=== PATIENT | female | born 1975 | race Caucasian/White ===

== ENCOUNTER 2021-12-10 05:18 | Day surgery (SDC) | payer MEDICAID ==
[2021-12-03 15:13] LABS: BASOPHILS # (AUTO) 0.1 X10'3 (0-0.2); BASOPHILS % (AUTO) 0.7 % (0-1); EOSINOPHILS # (AUTO) 0.2 X10'3 (0-0.9); EOSINOPHILS % (AUTO) 1.5 % (0-6); LYMPHOCYTES # (AUTO) 3.1 X10'3 (1.1-4.8); LYMPHOCYTES % (AUTO) 28.2 % (21-51); MEAN CORPUSCULAR HEMOGLOBIN 29.1 PG (27.0-31.0); MEAN CORPUSCULAR HGB CONC 33.1 g/dL (33.0-36.5); MEAN CORPUSCULAR VOLUME 88.1 FL (78-98); MEAN PLATELET VOLUME 8.6 FL (7.4-10.4); MONOCYTES # (AUTO) 0.7 X10'3 (0-0.9); MONOCYTES % (AUTO) 5.8 % (2-12); NEUTROPHILS # (AUTO) 7.1 X10'3 (1.8-7.7); NEUTROPHILS % (AUTO) 63.8 % (42-75); PRE OP HEMATOCRIT 42.7 % (35.0-45.0); PRE OP HEMOGLOBIN 14.1 g/dL (12.0-16.0); PRE OP PLATELET COUNT 220 X10'3 (140-440); RED BLOOD COUNT 4.84 X10'6 (4.20-5.60); RED CELL DISTRIBUTION WIDTH 13.3 % (11.5-14.5)
[2021-12-03 15:24] LABS: ALBUMIN/GLOBULIN RATIO 1.1 (1.1-1.5); ALKALINE PHOSPHATASE 98 IU/L (46-116); BLOOD UREA NITROGEN 18 MG/DL (7-18); CALCIUM 9.4 MG/DL (8.5-10.1); CHLORIDE 107 MMOL/L (99-107); CREATININE 0.82 MG/DL (0.40-0.90); PRE OP ALT 21 U/L (30-65); PRE OP ANION GAP 6 (8-16); PRE OP BILIRUB, TOTAL 0.1 MG/DL (0.0-1.0); PRE OP GLUCOSE 102 MG/DL (70-104); PRE OP SODIUM 141 MMOL/L (135-145); TOTAL CARBON DIOXIDE 27.9 MMOL/L (24-32); TOTAL PROTEIN 7.8 G/DL (6.4-8.2); eGFR 74 ML/MIN
[2021-12-03 15:34] LABS: PRE OP AST 15 U/L (10-37); PRE OP POTASSIUM 4.1 MMOL/L (3.4-5.1)
[~2021-12-10] VITALS: Ht 157.5 cm; Wt 112.7 kg
[~2021-12-10 05:18] MED LIST: ALBU8HFA PO; BUDE10.2 INH; CETI10TA14 PO; CHOL20002 PO; FOLI-91 PO; LOSA25TA41 PO; MELA10TA PO; PRAV20TA4 PO; VENL150C58 PO; glycopyrrolate 0.2mg/ml inj ONE; neostigmine methylsulfate 1 MG/ML 10ml vial ONE; ondansetron/PF 4mg/2ml inj ONE; propofol inj 0 ML IV ONE; rocuronium 10mg/ml inj IV ONE
[2021-12-10] MEDS ORDERED: ringers solution, lacted 1,000 ML IV SCH (05:30)
[2021-12-10] MEDS ORDERED: famotidine 20mg tablet PO ONE (05:30)
[2021-12-10 05:35] VITALS: BP 129/82
[2021-12-10] MEDS ORDERED: ipratropium/albuterol 3ml nebule IH PRN (06:25)
[2021-12-10] MEDS ORDERED: BUPIVAcaine/PF 2.5 mg/ml (0.25%) 30ml vial ONE ×2 (06:40→06:41)
[2021-12-10] MEDS ORDERED: ceFAZolin inj. 2,000 MG in dextrose 5%-water 100 ML IV ONE (06:55)
[2021-12-10] MEDS ORDERED: LIDOcaine 1% 30ml preserv. free vial ONE (07:00)
[2021-12-10] MEDS ORDERED: fentaNYL/PF 50MCG/1 ML 2ML syringe ONE (07:14)
[2021-12-10] MEDS ORDERED: MIDAZolam 1 MG/ML 5ML VIAL ONE (07:14)
[2021-12-10] MEDS ORDERED: ketorolac trometh. 30mg/ml inj. ONE (07:17)
[2021-12-10] MEDS ORDERED: 0.9 % SODIUM CHLORIDE 10 ML VIAL ONE (07:25)
[2021-12-10] MEDS ORDERED: propofol inj 20 ML IV ONE (07:54)
[2021-12-10 07:59] VITALS: BP 134/76
--- NOTE | 2021-12-10 07:59 | NUR ---
Received from OR via [facility], accompanied by Anesthesiologist dr acosta and report given by Anesthesiolgist. PT PRESENTS WITH PIV 20G LEFT HAND. DRESSING ON RIGHT ELBOW AND WRIST CDI. VSS. Addendum: 12/10/21 at 0808 by Renata Morrissey RN, RN Amended: Links added.
[2021-12-10 08:10] VITALS: BP 127/72
[2021-12-10 08:20] VITALS: BP 117/64
[2021-12-10 08:30] VITALS: BP 108/62
[2021-12-10 08:39] VITALS: BP 108/62
--- NOTE | 2021-12-10 08:39 | NUR ---
ALL DISCHARGE CRITERIA HAS BEEN MET. VSS, PAIN AT A TOLERABLE LEVEL, VOIDING AND ABLE TO SAFELY AMBULATE AND TRANSFER SELF. IV TAKEN OUT WITHOUT COMPLICATIONS. ALL DISCHARGE INSTRUCTIONS COVERED WITH PATIENT AND ALL QUESTIONS ANSWERED, COPY GIVEN TO PATIENT. PATIENT TAKEN OUT VIA WHEELCHAIR TO PERSONAL VEHICLE WHERE FAMILY/FRIEND DROVE PATIENT HOME. Addendum: 12/10/21 at 0843 by Renata Morrissey RN, RN Amended: Links added.
[2021-12-10] MEDS ORDERED: albuterol 2.5 MG/3 ML nebule NEB ONE (10:40)
== END 2021-12-10 08:39 | disposition home or self-care (01) ==
LOC: PAS 05:18
PROVIDERS: ATTEND Orthopaedic Surgery Hand Surgery
DX: G56.01 Carpal tunnel syndrome, right upper limb (principal); G56.21 Lesion of ulnar nerve, right upper limb; I10 Essential (primary) hypertension; E11.9 Type 2 diabetes mellitus without complications; Z79.899 Other long term (current) drug therapy; Z98.890 Other specified postprocedural states; Z90.710 Acquired absence of both cervix and uterus; Z90.49 Acquired absence of other specified parts of digestive tract; Z87.891 Personal history of nicotine dependence; Z79.4 Long term (current) use of insulin
CPT/HCPCS: 29848; 36415; 64718; 80053; 82948; 85025; 93005; 94640; 94664; 94760; J1885; J2250; J2704; J3010; J3490; J7030; J7120; Z7506; Z7512; A4215; A6449; A7000; J2405; J2710

== ENCOUNTER 2022-01-18 06:56 | Day surgery (SDC) | payer MEDICAID ==
[2022-01-11 15:42] LABS: BASOPHILS # (AUTO) 0.1 X10'3 (0-0.2); BASOPHILS % (AUTO) 0.8 % (0-1); EOSINOPHILS # (AUTO) 0.1 X10'3 (0-0.9); EOSINOPHILS % (AUTO) 1.2 % (0-6); LYMPHOCYTES # (AUTO) 2.9 X10'3 (1.1-4.8); LYMPHOCYTES % (AUTO) 26.7 % (21-51); MEAN CORPUSCULAR HEMOGLOBIN 29.2 PG (27.0-31.0); MEAN CORPUSCULAR HGB CONC 33.5 g/dL (33.0-36.5); MEAN PLATELET VOLUME 8.4 FL (7.4-10.4); MONOCYTES # (AUTO) 0.6 X10'3 (0-0.9); MONOCYTES % (AUTO) 5.5 % (2-12); NEUTROPHILS # (AUTO) 7.2 X10'3 (1.8-7.7); NEUTROPHILS % (AUTO) 65.8 % (42-75); PRE OP HEMATOCRIT 41.3 % (35.0-45.0); PRE OP HEMOGLOBIN 13.8 g/dL (12.0-16.0); PRE OP PLATELET COUNT 198 X10'3 (140-440); RED BLOOD COUNT 4.75 X10'6 (4.20-5.60); RED CELL DISTRIBUTION WIDTH 13.1 % (11.5-14.5)
[2022-01-11 15:56] LABS: ALBUMIN 3.9 G/DL (3.4-5.0); ALBUMIN/GLOBULIN RATIO 1.1 (1.1-1.5); ALKALINE PHOSPHATASE 95 IU/L (46-116); BLOOD UREA NITROGEN 17 MG/DL (7-18); BUN/CREATININE RATIO 19.8 (6.6-38.0); CALCIUM 9.6 MG/DL (8.5-10.1); CHLORIDE 101 MMOL/L (99-107); CREATININE 0.86 MG/DL (0.40-0.90); PRE OP ALT 24 U/L (30-65); PRE OP ANION GAP 8 (8-16); PRE OP AST 20 U/L (10-37); PRE OP BILIRUB, TOTAL 0.2 MG/DL (0.0-1.0); PRE OP GLUCOSE 104 MG/DL (70-104); PRE OP POTASSIUM 4.1 MMOL/L (3.4-5.1); PRE OP SODIUM 138 MMOL/L (135-145); TOTAL PROTEIN 7.5 G/DL (6.4-8.2); eGFR 70 ML/MIN
[~2022-01-18] VITALS: Ht 160 cm; Wt 116.5 kg
[2022-01-18] VITALS (8 sets, daily range): BP systolic 110–137; BP diastolic 64–94
[~2022-01-18 06:56] MED LIST changes: +ACET-1008 PO; +CELE100C98 PO; +IMMUNE BOOSTER; +albuterol 2.5 MG/3 ML nebule NEB ONE; +ceFAZolin inj. 2,000 MG in dextrose 5%-water 100 ML IV ONE; +famotidine 20mg tablet PO ONE; -glycopyrrolate 0.2mg/ml inj ONE; -neostigmine methylsulfate 1 MG/ML 10ml vial ONE; -ondansetron/PF 4mg/2ml inj ONE; -propofol inj 0 ML IV ONE; +ringers solution, lacted 1,000 ML IV SCH; -rocuronium 10mg/ml inj IV ONE
[2022-01-18] MEDS ORDERED: LIDOcaine 0.5% (5mg/ml) 50ml vial ONE (07:21)
[2022-01-18] MEDS ORDERED: BUPIVAcaine/PF 2.5 mg/ml (0.25%) 30ml vial ONE (07:21)
[2022-01-18] MEDS ORDERED: LIDOcaine 1% 30ml preserv. free vial ONE (07:34)
[2022-01-18] MEDS ORDERED: MIDAZolam 1 MG/ML 5ML VIAL ONE (09:37)
[2022-01-18] MEDS ORDERED: fentaNYL/PF 50MCG/1 ML 2ML syringe ONE (09:37)
[2022-01-18] MEDS ORDERED: propofol inj 20 ML IV ONE (10:44)
[2022-01-18] MEDS ORDERED: ketorolac trometh. 30mg/ml inj. ONE (10:44)
--- NOTE | 2022-01-18 10:55 | NUR ---
Received from OR via [facility], accompanied by Anesthesiologist, DR. CH and report given. PATIENT WAKING UP, NO S/S OF PAIN, V/S WNL, 20G TO RUE, LEFT WRIST AND ELBOW DRESSING CDI-ICE AND ELEVATED. FINGERS PINK WARM TO LEFT HAND.
[2022-01-18] MEDS ORDERED: HYDROcodone/acetaminophen 5mg/325mg tablet PO ONE (11:15)
[2022-01-18] MEDS ORDERED: acetaminophen 1,000mg/100ml IV 100 ML IV ONE (11:20)
[2022-01-18] MEDS ORDERED: meperidine/PF 25mg/ml syringe IV ONE (11:20)
--- NOTE | 2022-01-18 11:20 | NUR ---
PT PAINFUL 09/09-NO PAIN MEDS ORDERED BY ANESTHESIA, OBTAINED ORDER AND WAITING FOR PHARMACY APPROVAL, PT TOLERATING LIQUIDS, VSS
--- NOTE | 2022-01-18 11:38 | NUR ---
GIVEN IV DEMEROL, IV TYLENOL PAIN BETTER 5/10, ICE IN PLACE, WARM AIR FOR COMFORT, VSS, FINGERS PINK/WARM, 1 NORCO GIVEN FOR PAIN FOR TRIP HOME.
--- NOTE | 2022-01-18 12:15 | NUR ---
PT DOING WELL-DRESSED AND WAITING FOR , VSS, PAIN TOLERABLE 3/10, FINGERS PINK AND WARM ON LEFT HAND, DRSG-CDI, PIV-D/CD CANULA INTACT, D/C INSTRUCTIONS GIVEN TO PT-ALL QUESTIONS ANSWERED, TAKEN VIA W/C WITH ALL BELONGINGS TO VEHICLE FOR TRANSPORT HOME.
== END 2022-01-18 12:15 | disposition home or self-care (01) ==
LOC: PAS 06:56
PROVIDERS: ATTEND Orthopaedic Surgery Hand Surgery
DX: G56.02 Carpal tunnel syndrome, left upper limb (principal); G56.22 Lesion of ulnar nerve, left upper limb; F41.8 Other specified anxiety disorders; Z79.899 Other long term (current) drug therapy; Z98.890 Other specified postprocedural states; Z90.710 Acquired absence of both cervix and uterus; Z87.891 Personal history of nicotine dependence; Z91.09 Other allergy status, other than to drugs and biological substances; Z90.49 Acquired absence of other specified parts of digestive tract; Z85.43 Personal history of malignant neoplasm of ovary
CPT/HCPCS: 29848; 36415; 64718; 80053; 82948; 85025; A6258; J0131; J0690; J1885; J2175; J2250; J2704; J3010; J3490; J7030; J7060; J7120; Z7506; Z7512; A4215; A7000

== ENCOUNTER 2023-07-06 08:13 | Emergency (ER) | payer MEDICAID ==
[~2023-07-06] VITALS: Ht 157.5 cm; Wt 120.3 kg
[~2023-07-06 08:13] MED LIST changes: +CELE-148 PO; -CELE100C98 PO; -MELA10TA PO; +MELATONIN10 MG PO; -albuterol 2.5 MG/3 ML nebule NEB ONE; -ceFAZolin inj. 2,000 MG in dextrose 5%-water 100 ML IV ONE; -famotidine 20mg tablet PO ONE; -ringers solution, lacted 1,000 ML IV SCH
[2023-07-06 08:19] VITALS: TEMP 97.2
[2023-07-06] MEDS: normal saline 1000ML IV soln IVB ONE (09:19)
[2023-07-06] MEDS: morphine 4 MG/ML inj SYRINge IV PRN (09:19)
[2023-07-06] MEDS: ondansetron/PF 4mg/2ml inj IV ONE (09:19)
[2023-07-06 09:34] LABS: ALANINE AMINOTRANSFERASE 27 U/L (12-78)
[2023-07-06 09:35] LABS: ALBUMIN 4.2 G/DL (3.4-5.0); ALBUMIN/GLOBULIN RATIO 1.1 (1.1-1.5); ALKALINE PHOSPHATASE 89 IU/L (46-116); ANION GAP 10 (8-16); ASPARTATE AMINO TRANSFERASE 13 U/L (10-37); BILIRUBIN,TOTAL 0.4 MG/DL (0.1-1.0); BLOOD UREA NITROGEN 10 MG/DL (7-18); BUN/CREATININE RATIO 12.7 (10.0-20.0); CALCIUM 9.3 MG/DL (8.5-10.1); CHLORIDE 104 MMOL/L (99-107); CREATININE 0.79 MG/DL (0.40-0.90); GLUCOSE 150 MG/DL (70-104); LIPASE 29 U/L (16-77); POTASSIUM 4.1 MMOL/L (3.5-5.1); SODIUM 139 MMOL/L (135-145); TOTAL CARBON DIOXIDE 24.9 MMOL/L (24-32); eCRCL 68 ML/MIN; eGFR 77 ML/MIN
[2023-07-06 09:36] LABS: BASOPHILS # (AUTO) 0.1 X10'3 (0-0.2); BASOPHILS % (AUTO) 0.9 % (0-1); EOSINOPHILS # (AUTO) 0.1 X10'3 (0-0.9); EOSINOPHILS % (AUTO) 1.4 % (0-6); HEMATOCRIT 44.7 % (35.0-45.0); HEMOGLOBIN 15.2 g/dl (12.0-16.0); LYMPHOCYTES # (AUTO) 3.1 X10'3 (1.1-4.8); LYMPHOCYTES % (AUTO) 32.9 % (21-51); MEAN CORPUSCULAR HEMOGLOBIN 29.8 PG (27.0-31.0); MEAN CORPUSCULAR VOLUME 87.7 FL (78-98); MEAN PLATELET VOLUME 8.4 FL (7.4-10.4); MONOCYTES # (AUTO) 0.4 X10'3 (0-0.9); MONOCYTES % (AUTO) 4.4 % (2-12); NEUTROPHILS # (AUTO) 5.7 X10'3 (1.8-7.7); NEUTROPHILS % (AUTO) 60.4 % (42-75); PLATELET COUNT 237 X10'3 (140-440); RED BLOOD COUNT 5.09 X10'6 (4.20-5.60); RED CELL DISTRIBUTION WIDTH 12.4 % (11.5-14.5); WHITE BLOOD COUNT 9.4 X10'3 (4.5-11.0)
[2023-07-06 12:40] LABS: BILIRUBIN,URINE NEGATIVE (Neg); CLARITY,URINE SLIGHTLY CLOUDY (Clear); COLOR,URINE YELLOW (Yellow); GLUCOSE, URINE NEGATIVE (Neg); KETONES,URINE NEGATIVE (Neg); LEUKOCYTE ESTERASE ,URINE NEGATIVE (Neg); NITRITES, URINE NEGATIVE (Neg); OCCULT BLOOD,URINE NEGATIVE (Neg); PROTEIN,URINE NEGATIVE (Neg); UROBILINOGEN,URINE 0.2 E.U/dL (0.2-1.0)
[2023-07-06 12:44] LABS: UA COLLECTION TYPE CLN CATCH MIDSTREAM
[2023-07-06 12:49] LABS: MUCUS STRANDS MANY /LPF (Neg); SQUAMOUS EPITHELIAL CELL,UR MANY /LPF (FEW)
[2023-07-06 12:50] LABS: BACTERIA,URINE FEW /HPF (Neg); CAL OXALATE CRYSTALS 1+ /HPF (NEGATIVE); RBC,URINE 0-2 /HPF (0-2); WBC,URINE 0-4 /HPF (0-4)
[2023-07-06 14:39] VITALS: BP 120/65; PULSE 72; RESP 16; O2SAT 95
== END 2023-07-06 14:44 | disposition home or self-care (01) ==
LOC: ER 08:14
DX: R10.33 Periumbilical pain (principal); Z91.09 Other allergy status, other than to drugs and biological substances; Z79.899 Other long term (current) drug therapy; Z79.2 Long term (current) use of antibiotics
CPT/HCPCS: 36415; 74176; 80053; 81001; 83690; 85025; 96361; 96374; 96375; 96376; 99285; J2270; J2405; J7030

== ENCOUNTER 2023-08-18 02:50 | Emergency (ER) | payer MEDICAID ==
[~2023-08-18] VITALS: Ht 157.5 cm; Wt 119.1 kg
[2023-08-18] MEDS: acetaminophen 325mg tablet PO ONE (05:56)
[2023-08-18 05:58] VITALS: TEMP 97.8
[2023-08-18] MEDS ORDERED: AMOX-580 PO (06:01)
[2023-08-18] MEDS: morphine sulfate IR 15MG tablet PO STA (06:17)
[2023-08-18] MEDS: amox tr/potassium clavulanate 875/125mg TAB PO ONE (06:17)
[2023-08-18 07:02] VITALS: BP 190/95; PULSE 77; RESP 18; O2SAT 96
== END 2023-08-18 07:22 | disposition home or self-care (01) ==
LOC: ER 02:50
DX: K08.89 Other specified disorders of teeth and supporting structures (principal); Z91.09 Other allergy status, other than to drugs and biological substances; Z79.2 Long term (current) use of antibiotics; Z79.899 Other long term (current) drug therapy; Z79.1 Long term (current) use of non-steroidal anti-inflammatories (NSAID)
CPT/HCPCS: 99284

== ENCOUNTER 2024-12-17 20:49 | Inpatient (IN) | payer MEDICAID ==
[~2024-12-17] VITALS: Ht 162.6 cm; Wt 110.9 kg
[~2024-12-17 20:49] MED LIST changes: +PRAV20TA17 PO; -PRAV20TA4 PO
[2024-12-17] MEDS: normal saline 1000ML IV soln IVB ONE ×2 (21:09→21:54)
--- NOTE | 2024-12-17 21:12 | Physician Documentation ---
History of Present Illness General Chief Complaint: Syncope Stated Complaint: LOW BP Time Seen by MD: 20:58 Mode of Arrival: POV History of Present Illness Initial Comments Patient is a 49-year-old female with a complaint of weakness and diaphoresis over the last 2-3 days. Patient states she recently and multiple medications adjusted to include blood pressure medications and a medication for anxiety. She states over the last two days she has had progressively worsening weakness she has been sweating family states she has been slightly confused. Patient had a syncopal episode while in triage. Patient denies any fevers she denies any chest pain she states she has some slight shortness of breath. Patient is a diabetic. Medication Reconciliation Allergies: Coded Allergies: adhesive tape (Verified Allergy, Unknown, "rash on skin", 12/17/24) Scheduled Amlodipine Besylate (Amlodipine Besylate), 2 TAB PO DAILY Budesonide/Formoterol Fumarate (Symbicort 160-4.5 Mcg Inhaler), 2 PUFF INH BID, (Reported) Celecoxib (Celecoxib), 1 CAP PO DAILY, (Reported) Ciprofloxacin HCl (Ciprofloxacin HCl), 1 TAB PO BID Desvenlafaxine Succinate (Desvenlafaxine Succinate ER), 1 TAB PO DAILY, (Reported) Duloxetine HCl (Duloxetine HCl), 1 CAP PO DAILY, (Reported) Ezetimibe (Zetia), 1 TAB PO DAILY, (Reported) Fenofibrate Nanocrystallized (Fenofibrate), 1 TAB PO DAILY, (Reported) Olmesartan/Hydrochlorothiazide (Olmesartan-Hctz 40-12.5 mg Tab), 1 TAB PO DAILY, (Reported) Rosuvastatin Calcium (Rosuvastatin Calcium), 1 TAB PO HS, (Reported) Scheduled PRN albuterol inhaler (Pro-Air Inhaler), 90 MCG PO Q4H PRN for shortness of breath, (Reported) Discontinued Medications Acetaminophen (Tylenol), 2 TAB PO Q4HPRN PRN for pain or fever, (Reported) Discontinued Reason: patient no longer taking Cetirizine HCl (Cetirizine HCl), 1 TAB PO DAILY PRN for congestion, (Reported) Discontinued Reason: patient no longer taking Cholecalciferol (Vitamin D3) (Vitamin D3), 1 CAP PO DAILY, (Reported) Discontinued Reason: patient no longer taking Folic Acid/Mv,Fe,Other Min (One Daily For Women Tablet), 1 TAB PO DAILY, (Repor nida) Discontinued Reason: patient no longer taking Losartan Potassium (Losartan Potassium), 1 TAB PO DAILY, (Reported) Discontinued Reason: patient no longer taking Melatonin (Melatonin), 1 TAB PO HS, (Reported) Discontinued Reason: patient no longer taking Pravastatin Sodium (Pravastatin Sodium), 1 TAB PO DAILY, (Reported) Discontinued Reason: patient no longer taking Venlafaxine Hcl (Venlafaxine Hcl Er), 1 CAP PO DAILY, (Reported) Discontinued Reason: patient no longer taking [Immune Booster], Unknown Dose, (Reported) Discontinued Reason: patient no longer taking Past Medical History Past Medical History: Hypertension, Diabetes Past Surgical History: no surgical history, orthopedic surgeries Drug Use: none Lives In: Home Review of Systems All Other Systems at this time: Reviewed and Negative Physical Exam Physical Exam Vital Signs: Temperature: 98.0, Source: Oral, Heart Rate: 90, Respiratory Rate: 20, BP: 104/71, Pulse Oximetry: 98, Weight: 110.910 Oxygen Flow Rate: 0 Physical Exam VITALS: Reviewed and as above. GENERAL: Alert, no apparent distress. HEENT: Normocephalic, atraumatic, PERRL, EOMI, dry mucosa, no erythema RESPIRATORY: Diminished breath sounds bilaterally, no respiratory distress. CHEST: No accessory muscle use, no retractions CV: Regular rate, rhythm, no edema, no murmur, No: JVD GI: Soft, non-tender, bowels sounds present, no rebound, guarding, or rigidity BACK: No CVA tenderness, or swelling MUSCULOSKELETAL: No deformities, no edema SKIN: Diaphoretic, no rash NEURO: Oriented x4 slow to respond to questioning and slightly confused., No motor or sensory deficit PSYCH: Normal mood and affect, no agitation Progress Results/Orders Results/Orders Orders - OHLFSROBE MD Culture Blood (12/17/24 20:58) Chest,Single View (12/17/24 20:58) Accucheck (12/17/24 20:58) Page Hospitalist (12/17/24 22:48) Fill Out Med Reconciliation (12/17/24 22:48) Completed Orders - OHROBE CYR MD Electrocardiogram (12/17/24 20:58) Cbc/Diff (12/17/24 20:58) MG (12/17/24 20:58) Chest,Single View (12/17/24 20:58) Hcg, Ur Ql (12/17/24 20:58) Procalcitonin (12/17/24 20:58) BMP (12/17/24 20:58) Hs Troponin I W Calculations (12/17/24 20:58) Hs Troponin I W Calculations (12/17/24 22:58) Lacticsepsis (12/17/24 20:58) PBNP (12/17/24 20:58) Normal Saline 1000ml (0.9% Sodium Chlori (12/17/24 21:00) D-Dimer (12/17/24 21:00) Influenza Type A&B Rapid Test (12/17/24 21:03) Man Diff (12/17/24 21:03) Normal Saline 1000ml (0.9% Sodium Chlori (12/17/24 21:50) Ceftriaxone 2gm/D5w 50ml Bag (Rocephin 2 (12/17/24 21:50) Potassium Cl Sr Tablet (K-Dur Tablet) (12/17/24 22:26) Pathology Review (12/17/24 21:03) Lactic,2hr (12/17/24 22:45) Normal Saline 1000ml (0.9% Sodium Chlori (12/17/24 23:35) Pt Inr (12/17/24 21:17) PTT (12/17/24 21:17) Hgb A1c (12/17/24 21:03) Liver Panel (12/17/24 21:03) Osmolality (12/17/24 21:03) PHOS (12/17/24 21:03) Vital Signs 12/17/24 12/17/24 12/17/24 12/17/24 20:55 21:00 21:05 21:08 Temp 98.0 98.0 Pulse 95 90 Resp 10 18 16 20 B/P (MAP) 133/109 133/109 (117) 104/71 (82) Pulse Ox 99 99 98 O2 Flow Rate 0 12/17/24 12/17/24 22:19 23:11 Pulse 87 84 Resp 18 16 B/P (MAP) 115/62 (79) 111/54 (73) Pulse Ox 98 98 Laboratory Tests Test 12/17/24 20:57 12/17/24 21:03 12/17/24 21:17 12/17/24 23:08 Glucometer 154 H White Blood Count 17.7 H Red Blood Count 5.63 H Hemoglobin 17.4 H Hematocrit 52.2 H Mean Corpuscular Volume 92.6 Mean Corpuscular Hemoglobin 31.0 Mean Corpuscular Hemoglobin Concent 33.4 Red Cell Distribution Width 13.4 Platelet Count 239 Mean Platelet Volume 8.8 Neutrophils (%) (Auto) 46.2 Lymphocytes (%) (Auto) 46.7 Monocytes (%) (Auto) 6.4 Eosinophils (%) (Auto) 0.3 Basophils (%) (Auto) 0.4 Neutrophils # (Auto) 8.2 H Lymphocytes # (Auto) 8.2 H Monocytes # (Auto) 1.1 H Eosinophils # (Auto) 0.0 Basophils # (Auto) 0.1 CBC Comment Differential Total Cells Counted 100 Neutrophils % (Manual) 50.0 Lymphocytes % (Manual) 40.0 Monocytes % (Manual) 6.0 Reactive Lymphocytes 4.0 H Platelet Estimate Normal Red Blood Cell Morphology Normal Basophilic Stippling Hematology Pathologist Comment See note Sodium Level 138 Potassium Level 3.3 L Chloride Level 97 L Carbon Dioxide Level 21.3 L Anion Gap 20 H Blood Urea Nitrogen 21 H Creatinine 1.58 H Estimated GFR/1.73 m2 34 BUN/Creatinine Ratio 13.3 Glucose Level 149 H Hemoglobin A1c 5.5 Osmolality 335 H Calcium Level 9.8 Phosphorus Level 2.6 Magnesium Level 2.2 Total Bilirubin 0.3 Direct Bilirubin < 0.1 Aspartate Amino Transf (AST/SGOT) 24 Alanine Aminotransferase (ALT/SGPT) 30 Alkaline Phosphatase 104 Troponin I High Sensitivity 12 Pro-B-Type Natriuretic Peptide 160 H Total Protein 9.3 H Albumin 4.7 Globulin 4.6 H Albumin/Globulin Ratio 1.0 L Chemistry Comments Influenza Type A Antigen Negative Influenza Type B Antigen Negative Prothrombin Time 9.9 INR International Normalized Ratio 1.0 Activated Partial Thromboplast Time 21 L D-Dimer < 0.19 D-Dimer Comment Coagulation Comments Lactic Acid Level 6.4 *H 4.5 *H Procalcitonin < 0.05 Test 12/17/24 23:29 12/17/24 23:47 Troponin I High Sensitivity 12 Troponin I High Sens Percent Delta 0 Troponin I Hi Sens Absolute Change 0 Urine Specimen Description Cln catch midstream Urine Color Yellow Urine Clarity Clear Urine pH 6.0 Urine Specific [place] 1.020 Urine Protein 30 H Urine Glucose (UA) Negative Urine Ketones Negative Urine Occult Blood Trace-intact Urine Nitrite Positive H Urine Bilirubin Negative Urine Urobilinogen 0.2 Urine Leukocyte Esterase Negative Urine RBC 0-2 Urine WBC 5-10 H Urine Squamous Epithelial Cells Few Urine Bacteria 4+ Urine Culture Indicated Indicated Volume Urine Centrifuged 10 ml Urine Eosinophils No eos Urine Osmolality 539 Urine Random Creatinine 112.0 Urine Random Sodium 93 Urine Random Potassium 38 Urine HCG, Qualitative Negative Urine Comment Urine Opiates Screen Negative Urine Methadone Screen Negative Urine Fentanyl Screen Negative Urine Barbiturates Screen Negative Urine Phencyclidine Screen Negative Urine Amphetamines Screen Negative Urine Benzodiazepines Screen Negative Urine Cocaine Screen Negative Urine Cannabinoids Screen Positive Drug Screen Comment Microbiology Date/Time Source Procedure Growth Status 12/17/24 23:08 Blood Hand Left Blood Culture - Preliminary NO GROWTH AFTER 2 DAYS Resulted EKG/XRAY/CT/US/VASC/MRI Chest X-Ray : Additional Comments Patient: MOISES ORTA Medical Record: [id number] [facility] 1975, Age: 49 Sex: Female Location: ER Patient Status: [facility] ER Service Date/Time: 12/17/242057 Ordering Physician: ROBE BLACKMON MD Exam: CHEST,SINGLE VIEW CHEST RADIOGRAPH Indication: SEPSIS Technique: Single frontal view of the chest was obtained Comparison: None FINDINGS: Lines and Tubes: None Lungs: No focal consolidation. Pleura: No effusion. No pneumothorax. Cardiomediastinal contours: Unremarkable Bones: No acute osseous abnormality. IMPRESSION: No acute cardiopulmonary disease. Electronically Signed by:MIKAYLA GRIMES DO Date & Time: 12/17/242137 Dictated by: MIKAYLA GRIMES DO Dictation date and time: 12/17/242125 Primary Care Provider: NO PRIMARY CARE PROVIDER cc: ROBE BLACKMON MD ~ Medical Decision Making Additional information obtaine: old records Findings The patient arrived to triage and has a syncopal episode in triage the patient has had diaphoresis and weakness over last two days the patient's EKG was interpreted as a sinus tachycardia the rate was 101 the patient has a normal axis and nonspecific ST abnormalities and EKG was interpreted as a borderline EKG the time of the interpretation was 2053. The patient appeared to be clinically significantly dehydrated the patient was hydrated with IV fluids the patient was found to have a lactate of six given the lactic acid [place] [address] the patient was covered with ceftriaxone, the patient the patient is symptoms improved during her time in the emergency department her electronic device monitor was interpreted as a sinus tachycardia the patient has chest x-ray demonstrated a normal cardiac silhouette normal mediastinum and normal-appearing lung woodson I interpreted as a normal-appearing chest x-ray I have also reviewed the radiologist's report as well. The patient was admitted to the hospitalist case has been discussed with the hospitalist. Differential Diagnosis Sepsis, pneumonia, coronary artery disease, Departure Admitted to Inpatient Unit: yes, to hospitalist Impression: Primary Impression: Syncope Qualified Codes: R55 - Syncope and collapse Additional Impressions: Acute kidney injury Dehydration Lactic acid acidosis Referrals: NO PRIMARY CARE PROVIDER (PCP) Prescriptions Ciprofloxacin HCl (Ciprofloxacin HCl) 500 Mg Tab 1 TAB PO BID for 10 Days, #20 TAB Prov: STEFFEN MILLER [facility] 12/19/24 Amlodipine Besylate (Amlodipine Besylate) 5 Mg Tablet 2 TAB PO DAILY for 30 Days, #60 TAB Prov: STEFFEN MILLER [facility] 12/19/24 Signature Scribe Signature: no scribe Attestation: The note accurately reflects work and decisions made by me.Robe Blackmon MD 1 06:55 ROBE BLACKMON MD Dec 17, 2024 21:12
[2024-12-17 21:21] LABS: MEAN PLATELET VOLUME 8.8 FL (7.4-10.4); RED CELL DISTRIBUTION WIDTH 13.4 % (11.5-14.5)
[2024-12-17 21:32] LABS: INFLUENZA TYPE A ANTIGEN RAPID NEGATIVE (Negative); INFLUENZA TYPE B ANTIGEN RAPID NEGATIVE (Negative)
[2024-12-17 21:37] LABS: CREATININE 1.58 MG/DL (0.40-0.90); PRO BRAIN NATRIURETIC PEPTIDE 160 PG/ML (0-125); TOTAL CARBON DIOXIDE 21.3 MMOL/L (24-32); eCRCL 36 ML/MIN; eGFR 34 ML/MIN
--- NOTE | 2024-12-17 21:40 | RADIOLOGY REPORT ---
CHEST RADIOGRAPH Indication: SEPSIS Technique: Single frontal view of the chest was obtained Comparison: None FINDINGS: Lines and Tubes: None Lungs: No focal consolidation. Pleura: No effusion. No pneumothorax. Cardiomediastinal contours: Unremarkable Bones: No acute osseous abnormality. IMPRESSION: No acute cardiopulmonary disease.
[2024-12-17] MEDS: CefTRIAXone 2gm/D5W 50ml BAG 50 ML IV ONE (21:58)
[2024-12-17 22:21] LABS: LYMPHOCYTES % (MANUAL) 40.0 % (21-51); MONOCYTES % (MANUAL) 6.0 % (2-12); NEUTROPHILS % (MANUAL) 50.0 % (42-75); PLATELET ESTIMATE NORMAL; REACTIVE LYMPHOCYTES % 4.0 % (0-0)
[2024-12-17] MEDS: potassium Cl 20 mEq SR tablet PO STA (22:36)
[2024-12-17] MEDS ORDERED: DESV100T16 PO (22:43)
[2024-12-17] MEDS ORDERED: OLME-30 PO (22:43)
[2024-12-17] MEDS ORDERED: ROSU20TA98 PO (22:43)
[2024-12-17] MEDS ORDERED: DULO60CA65 PO (22:43)
[2024-12-17] MEDS ORDERED: FENO48TA10 PO (22:43)
[2024-12-17] MEDS ORDERED: EZET10TA6 PO (22:43)
[2024-12-17] MEDS: normal saline 1000ml 1,000 ML IV ONE (23:32)
[2024-12-17] MEDS ORDERED: HYDROcodone/acetaminophen 5mg/325mg tablet PO PRN (23:45)
[2024-12-17] MEDS ORDERED: magnesium sulf-water 4G/100mL 100 ML IV PRN (23:45)
[2024-12-17] MEDS ORDERED: potassium Cl 40MEQ/1/2NS 520ml 520 ML IV PRN (23:45)
[2024-12-17] MEDS ORDERED: magnesium hydroxide 30ml (MOM) UD suspension PO PRN (23:45)
[2024-12-17] MEDS ORDERED: magnesium Cl slow-release 64mg tablet PO PRN (23:45)
[2024-12-17] MEDS ORDERED: morphine 4 MG/ML inj SYRINge IV PRN (23:45)
[2024-12-17] MEDS ORDERED: potassium Cl 20 mEq SR tablet PO PRN ×2 (23:45)
[2024-12-17] MEDS ORDERED: ondansetron/PF 4mg/2ml inj IV PRN (23:45)
[2024-12-17] MEDS ORDERED: mag hydrox/Alum hydrox/simeth 30ml oral suspension PO PRN (23:45)
[2024-12-17] MEDS ORDERED: magnesium sulf-water 2g/50mL 50 ML IV PRN (23:45)
--- NOTE | 2024-12-17 23:54 | HISTORY AND PHYSICAL-Residence ---
History & Physical Providers to CC Resident Creating Document: MARTÍNEZ REYES RES ~ History of Present Illness Reason for Admit\\Complaint: Weakness History of Present Illness This 49-year-old female presented to the ER with a chief concern of weakness for the last 3-4 days. Also complains of excessive sweating. Takes Ozempic and so has chronic nausea. Has occasional shortness of breath and attributes it to anxiety. Denies any significant orthopnea or PND but uses multiple pillows under her head to sleep. She had three episodes of vomiting yesterday and one episode the day before yesterday. Denies any blood in vomitus and states that it was food particles. She had a presyncope event in the triage room. She felt dizzy and fell to the floor but did not hit her head or completely lose consciousness. But, she mentioned that she does not remember the event and only remembers that she felt dizzy when she stood up. Denies any previous syncope or presyncope events before. Complains of increased frequency of urination since her change in blood pressure medication about three days back. Has chills but denies any fever. She was also told by her family member that she had slurred speech for couple of hours (7:00 p.m. to 9:00 p.m.). Her last normal was around 3:00 p.m.. Now, she denies any slurred speech and denies any previous CVA. Has COPD and uses rescue inhaler and has no maintenance inhaler for the last eight months. Denies any chest pain, shortness of breath, cough, fever, abdominal pain, dysuria. Has occasional diarrhea due to Ozempic. Has an appointment for sleep study. Takes Ozempic for diabetes mellitus type 2 and last took metformin about eight months back. Allergies: Coded Allergies: adhesive tape (Verified Allergy, Unknown, "rash on skin", 12/17/24) Home Medications Home Medications Active Reported Desvenlafaxine Succinate ER (Desvenlafaxine Succinate) 100 Mg Tab.er.24h 1 Tab PO DAILY 30 Days Rosuvastatin Calcium 20 Mg Tablet 1 Tab PO HS 30 Days Fenofibrate (Fenofibrate Nanocrystallized) 48 Mg Tablet 1 Tab PO DAILY 30 Days Duloxetine HCl 60 Mg Capsule.dr 1 Cap PO DAILY 30 Days Zetia (Ezetimibe) 10 Mg Tablet 1 Tab PO DAILY 30 Days Olmesartan-Hctz 40-12.5 mg Tab (Olmesartan/Hydrochlorothiazide) 40 Mg-12.5 Mg Tablet 1 Tab PO DAILY 30 Days Celecoxib 100 Mg Capsule 1 Cap PO DAILY Symbicort 160-4.5 Mcg Inhaler (Budesonide/Formoterol Fumarate) 10.2 Gm Hfa.aer.ad 2 Puff INH BID Pro-Air Inhaler (Albuterol) 8.5 Gm Inhaler 90 Mcg PO Q4H PRN Past Medical History Past Medical History Hyperlipidemia, obesity, ovarian cancer-s/p hysterectomy and bilateral oophorectomy in 1993, hypotension, COPD, asthma, diabetes mellitus type 2, tobacco abuse, eczema Past Surgical History Surgical History Comment ovarian cancer-s/p hysterectomy and bilateral oophorectomy in 1993, cholecystectomy, bilateral carpal tunnel surgery, surgery for compartment syndrome and bilateral elbows Past Social History Social History Comment Has been smoking half pack of cigarettes per day for the last one year. Quit smoking for about 14 years that started about an year back and smoked one pack of cigarettes per day for 10-12 years before that. Drinks one or two shots of whiskey twice a week. Smokes marijuana daily or chews cannabis gums. Smoked meth 10-12 years back and the last time was about 17 years back. Denies any IV drug abuse Drug Use: None Lives In: Home ROS ROS Constitutional: Chills, dizziness and weakness present. No weight gain or loss Eyes: No pain, erythema, discharge, blurring of vision ENT: No sore throat, epistaxis, tinnitus Cardiovascular: No chest pain, chest pressure, chest discomfort, palpitations, syncope, lower extremity edema, paroxysmal nocturnal dyspnea Respiratory: No shortness of breath, cough, hemoptysis Gastrointestinal: Normal appetite. No nausea, vomiting, diarrhea, constipation, hematemesis, abdominal pain, bloating, melena or fresh blood Genitourinary: Increased urinary frequency. No urgency, nocturia, hematuria or dysuria Musculoskeletal: No arthralgias or myalgias Integumentary: No change in skin, hair, nails. No swelling, bruising, abrasions Neurologic: No headache, neck pain, numbness or tingling of the extremities, weakness Psychiatric: No delusions, depression, loss of interest in normal activity or change in sleep pattern, hallucinations, suicidal ideations Endocrine: Sweating present. No change in appetite, heat or cold intolerance, dry skin Hematological: No bleeding, petechiae, bruising Allergies: No asthma or urticaria Exam Vitals: Vital Signs Date Time Temp Pulse Resp B/P (MAP) Pulse Ox O2 Delivery O2 Flow Rate FiO2 12/17/24 23:11 84 16 111/54 (73) 98 12/17/24 21:08 98.0 12/17/24 21:00 0 General: Alert and oriented x4 HEENT: Normocephalic and atraumatic. Pupils equal round reactive to light and accommodation. Extraocular movements intact. Oral mucosa dry Neck: Trachea is in midline. No masses or JVD Chest: Bilateral normal breath sounds. No crackles, rhonchi or wheezes Cardiovascular: Regular rate and rhythm. S1-S2 normal. No rubs or murmurs Abdomen: Soft, nontender nondistended. Bowel sounds present Extremities: No cyanosis, clubbing or edema Central Nervous System: No gross sensory or motor deficits. CN II to XII grossly intact. No cerebellar signs Skin: Warm and dry Diagnostic Data Last Recorded Lab Results: 12/17/24210212/17/242102 Diagnostic Data: Laboratory Tests Test 12/17/24 21:17 D-Dimer < 0.19 MG/L FEU (0-0.50) D-Dimer Comment Advance Care Planning Advanced Care plannin - 30 Minutes Additional Plan Sepsis likely secondary to UTI Elevated WBC, no elevated temperature but vomitus touch Elevated lactic acid 6.4. Trending down with IV fluids Urinalysis showed positive nitrite, 5-10 WBC, 4+ bacteria Urine culture and blood culture ordered Received 4 L of normal saline boluses in the ER Started Ringer's lactate at 100 cc/hour Trend lactic acid q.2h till lactic acid normal-informed the nurse Chest x-ray did not show any significant cardiopulmonary abnormality Procalcitonin negative Received Rocephin 2 g IV once in the ER Started Rocephin 2 g IV daily Influenza and COVID negative Presyncope TIA - resolved Likely secondary to sepsis Head CT showed no acute cardiopulmonary abnormality A1c and lipid panel ordered U tox positive for cannabinoids EKG showed sinus rhythm, regular rate, narrow QRS with no significant ST or T- wave changes Metabolic acidosis with high anion gap Lactic acidosis PATRICK on CKD Elevated delta ratio-2.6. Possible underlying respiratory alkalosis as well Consider an ABG if acidosis does not improve Received 4 L normal saline boluses in the ER Continue Ringer's lactate at 100 cc/hour Urine lytes ordered Ethanol level ordered. Likely elevated serum osmolality gap UA negative for ketones. Check lipid panel COPD-no acute exacerbation Continue albuterol q.4h p.r.n. DuoNeb q.12h scheduled Diabetes mellitus type 2 Takes Ozempic at home Last took metformin about eight months back Started hyperglycemic/hypoglycemic protocol with Lantus 20 units HS and medium dose lispro protocol Pending HbA1c Hypertension Hold home medication olmesartan/hydrochlorothiazide due to ongoing PATRICK Started amlodipine 10 mg p.o. daily Hyperlipidemia Lipid panel ordered Continue home medication rosuvastatin 20 mg p.o. daily, fenofibrate 48 mg p.o. daily and ezetimibe 10 mg p.o. daily Possible Reactive polycythemia Likely due to volume depletion secondary to sepsis Continue IV fluids # continue home medication duloxetine 60 mg p.o. daily and desvenlafaxine 100 mg p.o. daily DVT prophylaxis: Heparin 5000 units subcutaneous q.12h Diet: 75 g carb controlled diet Martínez Reyes MD Internal Medicine Resident, PGY 3 Patient evaluated using HIPPA compliant AV device Agree with plan as discussed with the resident also CT abd and pelvis Velasquez Blake MD Date of Service: Dec 18, 2024 Billing Provider: VELASQUEZ BLAKE MD, MANOJNA RES Dec 17, 2024 23:54 VELASQUEZ BLAKE MD Dec 18, 2024 03:34
[2024-12-18] VITALS (10 sets, daily range): BP systolic 100–142; BP diastolic 54–91; PULSE 81–98; RESP 14–22; TEMP 97.8–98.4; O2SAT 95–100
[2024-12-18 00:10] LABS: PHOSPHORUS 2.6 MG/DL (2.3-4.5)
[2024-12-18 00:13] LABS: APTT 21 SECONDS (22-32); INR 1.0 INR
[2024-12-18 00:23] LABS: LEUKOCYTE ESTERASE ,URINE NEGATIVE (Neg); NITRITES, URINE POSITIVE (Neg); OCCULT BLOOD,URINE TRACE-INTACT (Neg); URINE HCG NEGATIVE (NEG)
--- NOTE | 2024-12-18 00:27 | RADIOLOGY REPORT ---
EXAM: CT CT HEAD INDICATION: pre-syncope TECHNIQUE: CT of the head without intravenous contrast. Radiation Dose Information: CT Dose: CTDI volume is 61.68 mGy. Dose-length product is 1067.66 mGy*cm The dose indicators for CT are the volume Computed Tomography (CT) Dose Index (CTDIvol) and the Dose Length Product (DLP), and are measured in units of mGy and mGy-cm, respectively. These indicators are not patient dose, but values generated from the CT scanner acquisition factors. The report includes radiation exposure data for exposures received during this examination. COMPARISON: None FINDINGS: There is no evidence of acute intracranial hemorrhage, extra-axial collection, mass effect, midline shift, herniation or hydrocephalus. The ventricles, sulci and cisterns are age appropriate. The amaya-white differentiation is intact. Patchy periventricular and subcortical white matter hypoattenuation is nonspecific but may be related to small vessel ischemic disease. The visualized paranasal sinuses and mastoid air cells are clear. The surrounding soft tissues and osseous structures are unremarkable. IMPRESSION: No acute intracranial abnormality.
[2024-12-18 00:28] LABS: UA COLLECTION TYPE CLN CATCH MIDSTREAM
[2024-12-18 00:30] LABS: SQUAMOUS EPITHELIAL CELL,UR FEW /LPF (FEW)
[2024-12-18 00:38] LABS: CREATININE,URINE RANDOM 112.0 MG/DL; URINE AMPHETAMINE SCREEN NEGATIVE (Neg); URINE BARBITUATE SCREEN NEGATIVE (Neg); URINE BENZODIAZEPINES SCREEN NEGATIVE (Neg); URINE CANNABINOID SCREEN POSITIVE (Neg); URINE COCAINE SCREEN NEGATIVE (Neg); URINE METHADONE SCREEN NEGATIVE (Neg); URINE OPIATE SCREEN NEGATIVE (Neg); URINE PHENCYCLIDINE SCREEN NEGATIVE (Neg)
[2024-12-18] MEDS: ringers solution, lacted 1,000 ML IV SCH (00:39)
[2024-12-18 00:40] LABS: OSMOLALITY 335 MOSM/K (280-300)
[2024-12-18 00:51] LABS: OSMOLALITY UA 539 MOSM/K (50-1400)
[2024-12-18 02:23] LABS: MEAN PLATELET VOLUME 8.6 FL (7.4-10.4); RED CELL DISTRIBUTION WIDTH 13.4 % (11.5-14.5)
[2024-12-18 02:36] LABS: APTT 21 SECONDS (22-32); INR 1.0 INR
[2024-12-18] MEDS ORDERED: glucagon, human recombinant 1mg kit SUBCUT PRN (02:50)
[2024-12-18] MEDS ORDERED: dextrose 50%-water 50ml dispensing syringe IV PRN ×2 (02:50)
[2024-12-18] MEDS ORDERED: DEXTROSE 15 GM of carb/4 tabs (each vial/BOTTLE has 4 tablets) PO PRN ×2 (02:50)
[2024-12-18 02:52] LABS: CHOL/HDL RATIO 2.8 (0.00-4.99); CREATININE 1.16 MG/DL (0.40-0.90); LDL CHOLESTEROL 47 MG/DL (50-100); PHOSPHORUS 3.1 MG/DL (2.3-4.5); TOTAL CARBON DIOXIDE 19.8 MMOL/L (24-32); eCRCL 50 ML/MIN; eGFR 49 ML/MIN
[2024-12-18] MEDS ORDERED: albuterol 2.5 MG/3 ML nebule NEB PRN (02:55)
[2024-12-18 03:29] LABS: ETHANOL 14 MG/DL (<10)
[2024-12-18] MEDS: INSULIN LISPRO 100 UNIT/ML INSULN.PEN MULTI-DOSE SQ SCH (07:00)
[2024-12-18] MEDS: duloxetine 30mg CAPSULE.DR PO SCH (07:18)
[2024-12-18] MEDS: heparin, porcine 5000 units/ml vial SQ SCH (07:21)
[2024-12-18] MEDS ORDERED: ipratropium/albuterol 3ml nebule NEB SCH (08:00)
[2024-12-18] MEDS ORDERED: non-formulary drug (Duloxetine HCl 1 CAP) PO SCH (08:00)
[2024-12-18] MEDS: K and/or MAG REPLACEMENT MC SCH (08:00)
[2024-12-18] MEDS: DESVENLAFAXINE SUCCINATE 100 MG PO SCH (08:00)
[2024-12-18] MEDS ORDERED: ipratropium/albuterol 3ml nebule NEB PRN (08:00)
[2024-12-18] MEDS: ringers solution, lacted 1,000 ML IV ONE (08:10)
--- NOTE | 2024-12-18 09:38 | RADIOLOGY REPORT ---
Exam: CT CT ABDOMEN PELVIS History: rule out pyelonephritis Comparison Study: CT CT ABDOMEN PELVIS on DOS: 07/06/23 Technique: Multidetector spiral CT of the abdomen was performed from lung bases to pubic symphysis. Imaging was performed without IV contrast. Axial, coronal and sagittal multiplanar reformats were obtained from the axial data set by the technologist. Radiation Dose : 1. Abdomen/Pelvis: CTDIvol 37 mGy, DLP 1872 mGy*cm. Findings: Evaluation of solid organs is limited due to lack of intravenous contrast use. Lung Bases: No acute or significant lung base finding. Normal heart size. No pleural or pericardial effusion. Liver: The liver is normal in size. No focal lesions. Gallbladder and Biliary Tree: Gallbladder is surgically absent. Spleen: Unremarkable Pancreas: The pancreas is grossly normal in appearance. Adrenal Glands: Unremarkable Kidneys: Kidneys are grossly normal without calculi or hydronephrosis. Bladder: Grossly unremarkable for degree of distention. Bowel: The stomach is grossly normal in appearance. Small bowel and colon are normal in caliber and distribution. The appendix is not visualized; however, no secondary findings of acute appendicitis identified. Ascites: Absent Lymphadenopathy: No mesenteric, retroperitoneal or periportal lymphadenopathy. Abdominal Wall and Mesentery: Unremarkable. Vasculature: The visualized abdominal aorta is normal in size and caliber. Evaluation of abdominal and pelvic vessels is limited due to lack of intravenous contrast. Pelvic Organs: Unremarkable Musculoskeletal: No aggressive focal bony lesions, acute fractures or dislocation. IMPRESSION: 1. No acute abdominal or pelvic findings. Radiation optimization: All CT scans at this facility use at least one of these dose optimization techniques: automated exposure control mA and/or kV adjustment per patient size (includes targeted exams where dose is matched to clinical indication) or iterative reconstruction.
--- NOTE | 2024-12-18 11:05 | PROGRESS NOTE ---
Daily Progress Note Providers to CC ~ Antibiotic Timeout Antibiotic Ordered?: Yes Subjective No acute events overnight. Patient examined at bedside. No new complaints, not in acute distress. Patient denies chest pain, sob, palpitations, abdominal pain, n/v/d. Vss, labs notable for downtrending lactic acid and Cr on IVF. CT abdomen/pelvis unremarkable. Objective Vital Signs Date Time Temp Pulse Resp B/P (MAP) Pulse Ox O2 Delivery O2 Flow Rate FiO2 12/18/24 10:00 97.8 91 14 100/76 (84) 97 Room Air 12/17/24 21:00 0 Result Diagram: 12/18/24 0143 12/18/24 0143 Physical Exam General: Generalized weakness, A&Ox 3, NAD HEENT: Normocephalic, PERRLA Neck: Supple, trachea midline, no JVD Chest: Clear to auscultation bilaterally Cardiovascular: RRR, S1&S2 GI: Soft and nontender Extremities: No cyanosis/clubbing/or edema SKIRT PANEL ASSEMBLER: CN II-XII intact, no focal deficits Musculoskeletal: No paraspinal muscle tenderness, no muscle spasm Skin: Warm and intact Coagulation Studies Laboratory Tests Test 12/17/24 21:17 12/18/24 01:43 D-Dimer < 0.19 MG/L FEU (0-0.50) D-Dimer Comment Prothrombin Time 10.3 SECONDS (9.0-12.0) INR International Normalized Ratio 1.0 INR Activated Partial Thromboplast Time 21 SECONDS (22-32) L Coagulation Comments Problem\Assessment\Plan Assessment & Plan Sepsis likely 2/2 UTI Metabolic acidosis, AGMA Lactic acidosis Prerenal PATRICK on 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 -lactic acid 6.4, downtrending to 2.9 on IVF, UA positive UTI, CT abd/pelv unremarkable -received bolus fluids, continue fluid and abx; follow urine/blood cx Presyncope -CT head neg, UDS positive cannabinoids -EKG sinus rhythm, narrow QRS with no significant ST or T-wave changes; follow MRI, TTE, orthostatic vitals COPD, not in acute exacerbation NIDDM HTN HLD MDD -Duoneb, amlodipine, hyper/hypoglycemic protocol, home statin, duloxetine DVT prophylaxis: heparin Diet: 75 g carb controlled diet Date of Service: Dec 18, 2024 Billing Provider: STEFFEN MILLER Common Visit Codes: [id number] INP/OBS CARE(HIGH) STEFFEN MILLER Dec 18, 2024 11:05
[2024-12-18] MEDS ORDERED: PERFLUTREN PROTEIN-A MICROSPHR (Optison) 0.22 MG/ML 3ML VIAL IV ONE (11:10)
--- NOTE | 2024-12-18 11:56 | ELECTROCARDIOGRAPH REPORT ---
[facility] Test Date: 2024-12-17 Test Time: 20:54:38 Pat Name: MOISES ORTA Department: EMERGENCY ROOM Room: ORTHO [facility] Gender: F Digital Analytics Manager: DEANNE : 1975 Requested By: ROBE BRITTON Order Number: [id number] Reading MD: Measurements Intervals [place] Rate: 101 P: 68 MD: 161 QRS: 32 QRSD: 86 T: 61 QT: 366 QTc: 475 Interpretive Statements Sinus tachycardia Minimal ST depression, inferior leads Please click the below link to view image of tracing.
--- NOTE | 2024-12-18 12:35 | VASCULAR REPORT ---
Indication: Dizziness Technique: Real-time ultrasound images of the neck vessels with amaya-scale, color and wave Doppler were obtained. Comparison: None Findings: There is mild bilateral atherosclerotic plaque. The following peak systolic velocities were recorded in cm/sec: Right internal carotid: 77 Right common carotid: 137 Right external carotid: 147 Right internal/common carotid ratio: 1 Left internal carotid: 82 Left common carotid: 118 Left external carotid: 141 Left internal/common carotid ratio: 1.2 Right vertebral artery: Patent with normal antegrade direction of flow. Left vertebral artery: Patent with normal antegrade direction of flow. Impression: No hemodynamically significant stenosis by velocity criteria.
[2024-12-18] MEDS: diazepam inj 5 MG/ML inj. IV ONE (13:43)
--- NOTE | 2024-12-18 15:06 | RADIOLOGY REPORT ---
PROCEDURE: MR MRI HEAD Indication: cva COMPARISON: CT CT HEAD on DOS: 12/17/24 TECHNIQUE: Multiplanar multisequence images of the brain are obtained. FINDINGS: There is no abnormal diffusion restriction. There is no intracranial hemorrhage. No extra-axial fluid collection, mass effect or midline shift. The ventricles are midline and normal in size. The cisterns are patent. Normal intracranial flow voids are preserved. No abnormal susceptibility signal. The sinuses and mastoids are well pneumatized. The visualized orbits are unremarkable. IMPRESSION: No acute cerebrovascular ischemia.
--- NOTE | 2024-12-18 19:36 | CARDIOLOGY REPORT ---
APPROVED REPORT EXAM: Comprehensive 2D, Doppler, and color-flow Echocardiogram. Patient Location: 4017 A Blood Pressure: 100/76 mmHg Heart Rate: 87 bpm Rhythm: Sinus Rhythm Indications Syncope Sepsis/UTI Hypotension Diabetes Mellitus COPD (current EDS) Shortness of Breath Home Weatherizing Worker: None Previous echo: None 2D Dimensions RVDd 2.8 cm LA Diam 4.4 cm IVSd 1.2 (0.7-1.1cm) LVDd 4.0 cm PWd 1.2 (0.7-1.1cm) Aortic Root(2D) 3.3 cm LVOT Diameter 2.09 (1.8-2.4cm) IVC 19.61 mm M-Mode Dimensions IVSd 1.00 (0.7-1.1cm) LVDd 4.23 (4.0-5.6cm) PWd 1.10 (0.7-1.1cm) IVSs 1.40 cm LVDs 2.53 (2.0-3.8cm) PWs 1.50 cm LVEF(%) 71 (>50%) Aortic Valve AoV Peak Jonathon. 178.1 cm/s AoV VTI 28.3 cm AO Peak GR. 12.7 mmHg AO Mean GR. 6 mmHg HAIM (VTI) 2.20 cm2 AV DI 0.64 % Mitral Valve MV E Velocity 77.0 cm/s MV Peak Gr. 6 mmHg MV DECEL TIME 252 ms MV A Velocity 94.8 cm/s MV PHT 68 ms E/A Ratio 0.8 MVA (PHT) 3.24 cm2 MV VMax 125.3 cm/s TDI Medial E' P. V 10.65 cm/s E/Medial E' 7.2 Tricuspid Valve TR P. Velocity 208 cm/s RAP ESTIMATE 10 mmHg TR Peak Gr. 17 mmHg RVSP 27 mmHg Pulmonary Vein S1 Velocity 67.3 cm/s D2 Velocity 49.5 cm/s PVa Velocity 26.8 cm/s PVa Duration 108 msec LEFT VENTRICLE Normal LV size with hyperdynamic function. Mild concentric hypertrophy. Resting LV gradient of 14 mmHg increasing to 50 mmHg wth Valsalva. LVEF is 70%. RIGHT VENTRICLE RV is normal size and function. Estimated PA systolic pressure is 27 mmHg. ATRIA Left atrium is mildly dilated. The right atrium size is normal. AORTIC VALVE Probable trileaflet AV appears sclerotic without stenosis or insufficiency. MITRAL VALVE Mild thickened MV annulus without stenosis. Trace regurgitation. PULMONIC VALVE Grossly normal PV without stenosis, physiologic insufficiency. GREAT VESSELS The aortic root is normal in size. IVC is normal in size and collapses less than 50% with inspiration. PERICARDIUM Normal pericardium. No pericardial effusion seen. Other Information Study Quality: Fair. TDS due to body habitus. Conclusion Normal LV size with hyperdynamic function. Mild concentric hypertrophy. Resting LV gradient of 14 mmHg increasing to 50 mmHg wth Valsalva. LVEF is 70%. RV is normal size and function. Estimated PA systolic pressure is 27 mmHg. Left atrium is mildly dilated. Probable trileaflet AV appears sclerotic without stenosis or insufficiency. Mild thickened MV annulus without stenosis. Trace regurgitation. Normal pericardium. No pericardial effusion seen.
[2024-12-18] MEDS: HYDROcodone/acetaminophen 10/325mg tab PO PRN (20:41)
[2024-12-18] MEDS: CefTRIAXone 2gm/D5W 50ml BAG 50 ML IV SCH (20:49)
[2024-12-18] MEDS ORDERED: non-formulary drug (Rosuvastatin Calcium 1 TAB) PO SCH (21:00)
[2024-12-18] MEDS ORDERED: insulin glargine (Lantus) pen - multi-dose SQ SCH (21:00)
[2024-12-19 05:41] LABS: MEAN PLATELET VOLUME 9.3 FL (7.4-10.4); RED CELL DISTRIBUTION WIDTH 13.0 % (11.5-14.5)
[2024-12-19 05:58] LABS: APTT 25 SECONDS (22-32); INR 1.0 INR
[2024-12-19 06:00] VITALS: BP 162/72; PULSE 78; RESP 19; TEMP 98; O2SAT 99
[2024-12-19 06:09] LABS: CREATININE 0.83 MG/DL (0.40-0.90); PHOSPHORUS 3.2 MG/DL (2.3-4.5); TOTAL CARBON DIOXIDE 26.3 MMOL/L (24-32); eCRCL 69 ML/MIN; eGFR 72 ML/MIN
[2024-12-19] MEDS ORDERED: NOR5T PO (07:03)
[2024-12-19] MEDS ORDERED: CIPR-458 PO (07:03)
[2024-12-19 08:00] VITALS: RESP 18; O2SAT 97
--- NOTE | 2024-12-19 08:39 | DISCHARGE SUMMARY ---
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 Presyncope COPD, not in acute exacerbation NIDDM HTN HLD MDD Operations\\Procedures: None Consultants: None Complications: None Condition on DC: Stable New Medications: Ciprofloxacin HCl (Ciprofloxacin HCl) 500 Mg Tab 1 TAB PO BID for 10 Days, #20 TAB Amlodipine Besylate (Amlodipine Besylate) 5 Mg Tablet 2 TAB PO DAILY for 30 Days, #60 TAB Continued Medications: albuterol inhaler (Pro-Air Inhaler) 8.5 Gm Inhaler 90 MCG PO Q4H PRN for shortness of breath, #1 INH Budesonide/Formoterol Fumarate (Symbicort 160-4.5 Mcg Inhaler) 10.2 Gm Hfa.aer.ad 2 PUFF INH BID Celecoxib (Celecoxib) 100 Mg Capsule 1 CAP PO DAILY Desvenlafaxine Succinate (Desvenlafaxine Succinate ER) 100 Mg Tab.er.24h 1 TAB PO DAILY for 30 Days, #30 TAB 0 Refills Duloxetine HCl (Duloxetine HCl) 60 Mg Capsule.dr 1 CAP PO DAILY for 30 Days, #30 CAP 0 Refills Ezetimibe (Zetia) 10 Mg Tablet 1 TAB PO DAILY for 30 Days, #30 TAB 0 Refills Fenofibrate Nanocrystallized (Fenofibrate) 48 Mg Tablet 1 TAB PO DAILY for 30 Days, #30 TAB 0 Refills Olmesartan/Hydrochlorothiazide (Olmesartan-Hctz 40-12.5 mg Tab) 40 Mg-12.5 Mg Tablet 1 TAB PO DAILY for 30 Days, #30 TAB 0 Refills Rosuvastatin Calcium (Rosuvastatin Calcium) 20 Mg Tablet 1 TAB PO HS for 30 Days, #30 TAB 0 Refills Discharge Summary: History of Present Illness From H&P: "This 49-year-old female presented to the ER with a chief concern of weakness for the last 3-4 days. Also complains of excessive sweating. Takes Ozempic and so has chronic nausea. Has occasional shortness of breath and attributes it to anxiety. Denies any significant orthopnea or PND but uses multiple pillows under her head to sleep. She had three episodes of vomiting yesterday and one episode the day before yesterday. Denies any blood in vomitus and states that it was food particles. She had a presyncope event in the triage room. She felt dizzy and fell to the floor but did not hit her head or completely lose consciousness. But, she mentioned that she does not remember the event and only remembers that she felt dizzy when she stood up. Denies any previous syncope or presyncope events before. Complains of increased frequency of urination since her change in blood pressure medication about three days back. Has chills but denies any fever. She was also told by her family member that she had slurred speech for couple of hours (7:00 p.m. to 9:00 p.m.). Her last normal was around 3:00 p.m.. Now, she denies any slurred speech and denies any previous CVA. Has COPD and uses rescue inhaler and has no maintenance inhaler for the last eight months. Denies any chest pain, shortness of breath, cough, fever, abdominal pain, dysuria. Has occasional diarrhea due to Ozempic. Has an appointment for sleep study. Takes Ozempic for diabetes mellitus type 2 and last took metformin about eight months back." Hospital Course Diagnostic findings were notable for lactic acidosis with lactic acid of 6.4 mmo l/L and anion gap of 20, renal insufficiency, leukocytosis, urinalysis revealing urinary tract infection. Pertinent negative findings were unremarkable CT abdomen/pelvis, chest x-ray, carotid artery ultrasound, CT head, MRI head. EKG showed sinus rhythm without ST elevation/depression. TTE revealed LVEF of 70%, RVSP 27mmHg, no significant valvular heart disease. Patient was treated with bolus fluids followed by continuous fluids and empirical antibiotics with great response. Patient did not experience further complications throughout the entire hospital stay and made a good recovery. Patient was seen and examined on the day of discharge. On day of discharge, vss and labs unremarkable. Last lactic acid normalized. Preliminary blood and urine culture negative until the day of discharge. Telemetry remains sinus in 80s. All labs, diagnostic workups, discharge plan discussed with patient in details during visit before discharge. All questions and concerns answered to the best of my professional knowledge. Patient ambulates independently. Patient is to be discharged to home to self and to follow-up with PCP within 2 weeks. Physical Exam General: A&Ox 3, NAD HEENT: Normocephalic, PERRLA Neck: Supple, trachea midline, no JVD Chest: Clear to auscultation bilaterally Cardiovascular: RRR, S1&S2 GI: Soft and nontender Extremities: No cyanosis/clubbing/or edema DISK SHARPENER: CN II-XII intact, no focal deficits Musculoskeletal: No paraspinal muscle tenderness, no muscle spasm Skin: Warm and intact *Problems/Diagnosis: (1) Lactic acid acidosis Status: Acute Total Time Spent on D/C: > 30 Minutes Date of Service: Dec 19, 2024 Billing Provider: STEFFEN MILLER Common Visit Codes: [id number] DISCH DAY >30min STEFFEN MILLER Dec 19, 2024 08:39
[2024-12-19] MEDS: hydrALAZINE 20mg/ml inj. IV ONE (08:45)
[2024-12-19 09:55] VITALS: BP 162/80; PULSE 78; O2SAT 96
[2024-12-19 10:15] VITALS: BP_SYST 162; PULSE 78
== END 2024-12-19 12:35 | disposition home or self-care (01) | DRG 720 ==
LOC: ER 20:50 → ED HOLD 23:50 → ORTHO 4S 12-18 03:36
PROVIDERS: ADMIT Internal Medicine; ATTEND Nurse Practitioner Family
DX: A41.9 Sepsis, unspecified organism (principal); N17.0 Acute kidney failure with tubular necrosis; E87.20 Acidosis, unspecified; Z20.822 Contact with and (suspected) exposure to COVID-19; F41.9 Anxiety disorder, unspecified; E78.5 Hyperlipidemia, unspecified; J44.9 Chronic obstructive pulmonary disease, unspecified; G45.9 Transient cerebral ischemic attack, unspecified; I12.9 Hypertensive chronic kidney disease with stage 1 through stage 4 chronic kidney disease, or unspecified chronic kidney disease; N39.0 Urinary tract infection, site not specified; E11.22 Type 2 diabetes mellitus with diabetic chronic kidney disease; N18.2 Chronic kidney disease, stage 2 (mild); Z79.51 Long term (current) use of inhaled steroids
CPT/HCPCS: 36415; 70450; 70551; 71045; 74176; 80048; 80053; 80061; 80076; 80305; 80320; 81001; 81025; 82570; 82948; 83036; 83605; 83735; 83880; 83930; 83935; 84100; 84133; 84145; 84300; 84484; 85007; 85025; 85379; 85610; 85730; 87040; 87077; 87081; 87088; 87186; 87207; 87804; 87811; 93005; 93306; 93880; 94760; 96365; 99285; G0378; J0360; J0696; J1644; J1815; J3360; J7030; J7120